=== PATIENT | female | born 1985 | race Caucasian/White ===

== ENCOUNTER → 2021-01-07 15:18 | Outpatient (BNVA) | payer SELFPAY | PROVIDERS: Visit Provider Emergency Medicine | DX: R10.9 Unspecified abdominal pain (principal); R11.2 Nausea with vomiting, unspecified; R10.13 Epigastric pain | CPT/HCPCS: 80053; 83690; 85025 ==

== ENCOUNTER → 2022-06-30 11:24 | Outpatient (BNVA) | payer OTHER, MEDICAID, SELFPAY | PROVIDERS: Visit Provider Emergency Medicine | DX: R55 Syncope and collapse (principal); R53.83 Other fatigue; R00.0 Tachycardia, unspecified; Z72.89 Other problems related to lifestyle | CPT/HCPCS: 71046; 80053; 83036; 84443; 85025 ==

== ENCOUNTER → 2023-09-29 09:46 | Outpatient (BNVA) | payer OTHER, MEDICAID, SELFPAY | PROVIDERS: Visit Provider Family Medicine | DX: B19.20 Unspecified viral hepatitis C without hepatic coma (principal); Z79.899 Other long term (current) drug therapy | CPT/HCPCS: 80053; 82306; 82607; 82728; 82746; 83550; 84443; 85025 ==

== ENCOUNTER → 2024-01-19 14:49 | Outpatient (BNVA) | payer OTHER, SELFPAY | PROVIDERS: PCP Family Medicine; Visit Provider Psychiatry & Neurology Psychiatry | DX: F15.21 Other stimulant dependence, in remission (principal); Z79.899 Other long term (current) drug therapy; F11.20 Opioid dependence, uncomplicated; F17.200 Nicotine dependence, unspecified, uncomplicated; F41.1 Generalized anxiety disorder; F33.2 Major depressive disorder, recurrent severe without psychotic features; F33.1 Major depressive disorder, recurrent, moderate; F11.21 Opioid dependence, in remission | CPT/HCPCS: 80307 ==

== ENCOUNTER 2024-08-14 12:35 | Emergency (ER) | payer MEDICAID, SELFPAY ==
[2024-08-14 12:52] VITALS: BP 126/61; PULSE 91; RESP 18; TEMP 36.7; O2SAT 100; BMI 23.8
--- NOTE | 2024-08-14 13:04 | ECG_ITS ---
[facility] Test Date: 2024-08-14 Pat Name: Maryann Beatty Department: Room: Gender: Female Garment Presser: : 1985 Requested By: Angi Quinn Order Number: [id number] Stephane MD: Blanca Miller M.D. Measurements Intervals [place] Rate: 81 P: 40 AL: 141 QRS: 66 QRSD: 93 T: 46 QT: 366 QTc: 427 Interpretive Statements SINUS RHYTHM Compared to ECG 05/12/2018 21:35:51 Sinus tachycardia no longer present T-wave abnormality no longer present Electronically Signed On 08-14-2024 19:28:47 INTERNAL COMBUSTION ENGINEER by Blanca Miller M.D. [email or web address]
[2024-08-14 14:24] VITALS: BP 122/74; PULSE 71; O2SAT 100
--- NOTE | 2024-08-14 14:37 | W.ED.ANXIETY ---
HPI - Anxiety General: Chief Complaint: Anxiety Stated Complaint: shaking, feels weird Time Seen by Provider: 08/14/24 14:30 Source: patient Mode of arrival: ambulatory Limitations: no limitations History of Present Illness: 39-year-old female states she has a long history anxiety states that her PCP did recently take her off Klonopin and she been having worsening Roberto states she had anxiety attack earlier today feels much improved currently states she felt like she could not breathe was having palpitations she states she feels much calmer she denies any SI or HI. Associated symptoms: Deny chest pain, chills, fever(s), headache(s), nausea or vomiting Related Data Home Medications Medication Instructions Recorded Confirmed ibuprofen 200 mg tablet 200 mg PO Q6H PRN Pain 08/30/22 08/14/24 Previous Rx's Medication Instructions Recorded bupropion HCl 150 mg 24 hr tablet, 150 mg PO QAM #30 tabs 05/06/24 extended release (Wellbutrin XL) mirtazapine 15 mg tablet 15 mg PO .HS #30 tabs 05/06/24 varenicline 1 mg tablet 1 mg PO BID #56 tabs 05/06/24 hydroxyzine pamoate 25 mg capsule 25 mg PO BID PRN anxiety #20 caps 08/14/24 (Vistaril) Allergies Allergy/AdvReac Type Severity Reaction Status Date / Time promethazine [From Phenergan] Allergy Unknown Unknown Verified 05/22/24 14:02 Review of Systems Const: Denies: fever(s), chills, body aches or change in appetite ENMT: Denies: throat pain or dental pain Card: Denies: chest pain Resp: Denies: dyspnea GI: Denies: abdominal pain, nausea, vomiting or diarrhea Musc: Denies: neck pain or back pain Skin/Breast: Denies: rash Neuro: Denies: headache(s) Psych: Reports: anxiety PFSH ED PFSH: Medical History Psychiatric care Hepatitis C Moderate major depression Anxiety Methamphetamine use disorder, moderate, in sustained remission, dependence Family history of diabetes mellitus Surgical History S/P section H/O: Family History Father Myocardial infarction Stroke Hypertension Diabetes Social History Smoking and tobacco/nicotine status: current every day tobacco/nicotine user (vape) Alcohol intake: former Substance/Drug Use: former Adopted: No Caregiver/support person: No Lives independently: Yes service: No Current occupational exposures/hazards: No Current gender identity: Female Female Reproductive History: Spontaneous abortions: No Physical Exam Const: COMMON NORMALS: no acute distress, patient oriented x3 and healthy appearing HENMT: COMMON NORMALS: normocephalic and atraumatic HEAD & SCALP: normocephalic and atraumatic Neck/C-Spine: COMMON NORMALS: full ROM and supple Chest: COMMONS NORMALS: normal inspection of the chest Resp: COMMON NORMALS: normal respiratory effort, No retractions, No use of accessory muscles and clear to auscultation bilaterally AUSCULTATION: clear to auscultation bilaterally Cardio: COMMON NORMALS: regular rate, regular rhythm and No murmurs present (Cardio) RATE: regular rate RHYTHM: regular rhythm Extremity: COMMON NORMALS: normal to inspection and full ROM Neuro: COMMON NORMALS: patient oriented x3, moves all extremities and no focal motor deficits Psych: COMMON NORMALS: mental status grossly normal, Normal thought process present and cooperative THOUGHT PROCESS: Normal thought process present Skin: COMMON NORMALS: no rashes or lesions noted and no wounds GENERAL SKIN EXAM: no rashes or lesions noted Course Vital Signs: Vital signs: Vital Signs Temperature 98.1 F 08/14/24 12:52 Pulse Rate 73 08/14/24 15:03 Respiratory Rate 18 08/14/24 12:52 Blood Pressure 104/79 08/14/24 15:03 Pulse Oximetry 98 08/14/24 15:03 Oxygen Delivery Me thod Room Air 08/14/24 14:24 MDM - Anxiety Medical Decision Making Patient presents here with anxiety she is well-appearing here EKG is normal I informed her I cannot refill her Klonopin did give her Vistaril she is to follow-up with her PCP return to ER if worsening she understands agrees to plan Medical Records I reviewed the patient's medical records. No radiology studies performed this visit EKG Data EKG 1: I personally reviewed and interpreted this EKG as follows: EKG interpretation date: 08/14/24 EKG interpretation time: 14:38 Interpretation: nsr hr [address] elevation qrs 93 qtc 404 Discharge Plan Discharge Patient Disposition: Home Clinical Impression: Anxiety Condition: Stable Prescriptions: New hydroxyzine pamoate [Vistaril] 25 mg capsule 25 mg PO BID PRN (Reason: anxiety) Qty: 20 0RF No Action ibuprofen 200 mg tablet 200 mg PO Q6H PRN (Reason: Pain) bupropion HCl [Wellbutrin XL] 150 mg tablet extended release 24 hr 150 mg PO QAM Qty: 30 2RF mirtazapine 15 mg tablet 15 mg PO .HS Qty: 30 2RF varenicline 1 mg tablet 1 mg PO BID Qty: 56 2RF Discharge Orders: Discharge ED (Routine); Ordered 08/14/24 Ordered By: Angi Quinn Referrals: Darrel Crocker MD [Primary Care Provider] - 4-7 days Discharge Diet: Advance as tolerated Discharge Activity: Resume usual activity Patient Instructions: Anxiety (ED) Coding Level of Care Code ED Executive Relations Specialist for Jesus Hendricks
[2024-08-14] MEDS: CLONazepam 0.5 mg Tablet PO (14:55)
[2024-08-14 15:03] VITALS: BP 104/79; PULSE 73; O2SAT 98
== END 2024-08-14 15:02 | disposition home or self-care (01) ==
PROVIDERS: Emergency Provider Emergency Medicine; PCP Family Medicine
DX: F41.9 Anxiety disorder, unspecified (principal); F17.290 Nicotine dependence, other tobacco product, uncomplicated
CPT/HCPCS: 93005; 99283

== ENCOUNTER 2024-09-15 17:36 | Emergency (ER) | payer MEDICAID, SELFPAY ==
[2024-09-15 17:47] VITALS: BP 113/79; PULSE 127; RESP 18; TEMP 36.7; O2SAT 99; BMI 21.0
--- NOTE | 2024-09-15 18:26 | W.ED.GENADLT ---
HPI - General Adult General: Chief complaint: General Medical Stated complaint: withdrawls Time Seen by Provider: 09/15/24 18:07 History of Present Illness: Patient is a 39-year-old female that presents to the emergency department with complaints of withdrawals. Patient reports she recently made a change to her Suboxone dose with her provider. She went from 8 mg to 2 mg but was unable to successfully taper off. She ended up doubling up on her 2 mg strips of Suboxone and has ultimately run out. She cannot see her provider until Monday. Associated symptoms: Deny chest pain, dyspnea, headache(s), nausea, rash or vomiting Related Data Home Medications Medication Instructions Recorded Confirmed ibuprofen 200 mg tablet 200 mg PO Q6H PRN Pain 08/30/22 08/14/24 Previous Rx's Medication Instructions Recorded bupropion HCl 150 mg 24 hr tablet, 150 mg PO QAM #30 tabs 05/06/24 extended release (Wellbutrin XL) mirtazapine 15 mg tablet 15 mg PO .HS #30 tabs 05/06/24 varenicline 1 mg tablet 1 mg PO BID #56 tabs 05/06/24 hydroxyzine pamoate 25 mg capsule 25 mg PO BID PRN anxiety #20 caps 08/14/24 (Vistaril) clonidine HCl 0.1 mg tablet 0.1 mg PO TID #3 tabs 09/15/24 hydralazine 25 mg tablet 25 mg PO TID #3 tabs 09/15/24 lorazepam 1 mg tablet (Ativan) 1 mg PO Q8H PRN withdrawal 09/15/24 symptoms #3 tabs ondansetron 4 mg disintegrating 4 mg PO Q8H 24 hours #3 tabs 09/15/24 tablet Allergies Allergy/AdvReac Type Severity Reaction Status Date / Time promethazine [From Phenergan] Allergy Unknown Unknown Verified 09/15/24 17:52 Review of Systems Const: Denies: fever(s), chills, body aches or change in appetite ENMT: Denies: throat pain or dental pain Card: Denies: chest pain Resp: Denies: dyspnea GI: Denies: abdominal pain, nausea, vomiting or diarrhea Musc: Denies: neck pain or back pain Skin/Breast: Denies: rash Neuro: Denies: headache(s) Psych: Reports: anxiety (Withdrawal from Suboxone) [facility] ED PFSH: Medical History Psychiatric care Hepatitis C Moderate major depression Anxiety Methamphetamine use disorder, moderate, in sustained remission, dependence Family history of diabetes mellitus Surgical History S/P section H/O: Family History Father Myocardial infarction Stroke Hypertension Diabetes Social History Smoking and tobacco/nicotine status: current every day tobacco/nicotine user Alcohol intake: former Substance/Drug Use: former Adopted: No Caregiver/support person: No Lives independently: Yes service: No Current occupational exposures/hazards: No Current gender identity: Female Female Reproductive History: Spontaneous abortions: No Physical Exam Const: COMMON NORMALS: no acute distress, patient oriented x3 and healthy appearing HENMT: COMMON NORMALS: normocephalic and atraumatic HEAD & SCALP: normocephalic and atraumatic Neck/C-Spine: COMMON NORMALS: full ROM and supple Chest: COMMONS NORMALS: normal inspection of the chest Resp: COMMON NORMALS: normal respiratory effort, No retractions, No use of accessory muscles and clear to auscultation bilaterally AUSCULTATION: clear to auscultation bilaterally Cardio: COMMON NORMALS: regular rhythm and No murmurs present (Cardio) RATE: tachycardic RHYTHM: regular rhythm Extremity: COMMON NORMALS: normal to inspection and full ROM Neuro: COMMON NORMALS: patient oriented x3, moves all extremities and no focal motor deficits Psych: COMMON NORMALS: mental status grossly normal, Normal thought process present and cooperative THOUGHT PROCESS: Normal thought process present Skin: COMMON NORMALS: no rashes or lesions noted and no wounds GENERAL SKIN EXAM: no rashes or lesions noted Course Vital Signs: Vital signs: Vital Signs Temperature 98.1 F 09/15/24 17:47 Pulse Rate 127 H 09/15/24 17:47 Respiratory Rate 18 09/15/24 17:47 Blood Pressure 113/79 09/15/24 17:47 Pulse Oximetry 99 09/15/24 17:47 Oxygen Delivery Me thod Room Air 09/15/24 17:47 MDM - General Adult Medical Decision Making Patient is here in the emergency department for medication refill and help with her withdrawal symptoms. Patient is usually on Suboxone but ran out. She cannot see her provider until Monday. I reviewed the case with Dr. Lemon We are going to provide the patient with clonidine, Ativan, hydralazine and Zofran. Patient is being provided her initial doses for tonight but then she will need to pickle solution maker her prescriptions in the morning. She needs to call her doctor tomorrow to see if she can get a refill of her Suboxone. At this time no further diagnostics are warranted No radiology studies performed this visit Discharge Plan Discharge Patient Disposition: Home Clinical Impression: Withdrawal complaint Condition: Stable Prescriptions: New lorazepam [Ativan] 1 mg tablet 1 mg PO Q8H PRN (Reason: withdrawal symptoms) Qty: 3 0RF clonidine HCl 0.1 mg tablet 0.1 mg PO TID Qty: 3 0RF hydralazine 25 mg tablet 25 mg PO TID Qty: 3 0RF ondansetron 4 mg tablet,disintegrating 4 mg PO Q8H 1 Days Qty: 3 0RF No Action ibuprofen 200 mg tablet 200 mg PO Q6H PRN (Reason: Pain) bupropion HCl [Wellbutrin XL] 150 mg tablet extended release 24 hr 150 mg PO QAM Qty: 30 2RF mirtazapine 15 mg tablet 15 mg PO .HS Qty: 30 2RF varenicline 1 mg tablet 1 mg PO BID Qty: 56 2RF hydroxyzine pamoate [Vistaril] 25 mg capsule 25 mg PO BID PRN (Reason: anxiety) Qty: 20 0RF Discharge Orders: Discharge ED (Routine); Ordered 09/15/24 [facility] Referrals: Darrel Crocker MD [Primary Care Provider] - Discharge Diet: Advance as tolerated Discharge Activity: Resume usual activity Patient Instructions: Opioid Safety, Pain Management Activity Restrictions/Additional Instructions: You have been provided hydralazine, Ativan, clonidine and Zofran to help with your withdrawal symptoms. I have given you enough for tonight but you need to pickle solution maker your prescription in the morning. You need to call your pain management provider/Suboxone provider to see if he can get additional medications. Call in the morning. Work note provided Stand Alone Forms: Work/School Release Coding Level of Care Code ED Assessment Specialist for Jesus Hendricks
[2024-09-15] MEDS: LORazepam 1 mg Tablet PO (18:44)
[2024-09-15] MEDS: cloNIDine 0.1 mg Tablet PO (18:45)
[2024-09-15] MEDS: ondansetron 4 MG Tablet PO (18:45)
[2024-09-15] MEDS: hyDRALAzine 25 mg Tablet PO (18:46)
[2024-09-15 18:47] VITALS: BP 109/74; PULSE 75; RESP 18; O2SAT 98
== END 2024-09-15 18:51 | disposition home or self-care (01) ==
PROVIDERS: Emergency Provider Nurse Practitioner; PCP Family Medicine
DX: F15.23 Other stimulant dependence with withdrawal (principal); Z72.0 Tobacco use
CPT/HCPCS: 99283; Q0162

== ENCOUNTER → 2024-09-17 14:46 | Outpatient (BNVA) | payer MEDICAID, SELFPAY | PROVIDERS: PCP Family Medicine; Visit Provider Nurse Practitioner Psychiatric/Mental Health | DX: Z79.899 Other long term (current) drug therapy (principal) | CPT/HCPCS: 80053; 80061; 80307; 83036 ==

== ENCOUNTER → 2024-11-07 13:52 | Outpatient (BNVA) | payer OTHER, SELFPAY ==
[2024-09-18 11:43] VITALS: BP 128/77; BMI 22.0
== END ==
PROVIDERS: PCP Family Medicine; Visit Provider Nurse Practitioner Psychiatric/Mental Health
DX: Z79.899 Other long term (current) drug therapy (principal)
CPT/HCPCS: 80307

== ENCOUNTER → 2024-12-17 10:42 | Outpatient (BNVA) | payer OTHER, SELFPAY ==
[2024-09-18 11:43] VITALS: BP 128/77; BMI 22.0
== END ==
PROVIDERS: PCP Family Medicine; Visit Provider Nurse Practitioner Psychiatric/Mental Health
DX: Z79.899 Other long term (current) drug therapy (principal)
CPT/HCPCS: 80307

== ENCOUNTER 2025-04-21 07:55 | Outpatient (CLI) | payer MEDICAID, SELFPAY ==
[2024-09-18 11:43] VITALS: BP 128/77; BMI 22.0
--- NOTE | 2025-04-21 08:01 | US_ITS ---
WS: [id number] Complete ABDOMINAL ULTRASOUND HISTORY: ventral hernia COMPARISON: None available. Liver: 14.4 cm in length. Normal size liver. There are several scattered hepatic cysts. No solid mass. The largest cyst in the central liver measures 1.7 x 1.8 x 1.8 cm. Portal Vein: Normal hepatopetal flow with monophasic waveform. Gallbladder: Normally distended gallbladder with no stones or wall thickening. CBD: 0.9 cm Pancreas: Normal size and echogenicity. Right kidney: 10.5 cm x 3.6 x 3.6 cm. Cortex:0.7 cm. Normal size and echogenicity. No hydronephrosis or mass. Left kidney: 11.9 cm x 3.8 cm x 3.5 cm. Cortex: 1.0 cm. Normal size and echogenicity. No hydronephrosis or mass. Spleen: 10.6 cm. Normal size and echogenicity. Aorta and IVC: Unremarkable abdominal aorta and IVC. No supraumbilical region there is a hernia containing fat only. No peristalsing loop of bowel is identified. Omental fat is noted. No abnormality below the umbilicus. US/US abdomen complete* [id number] Impression: 1. Small supraumbilical omental fat-containing hernia. 2. Several hepatic cysts. No solid mass. 3. Otherwise normal ultrasound of the abdomen.
== END 2025-04-21 07:56 | disposition home or self-care (01) ==
LOC: RAD 07:57
PROVIDERS: PCP Family Medicine; Visit Provider Family Medicine
DX: K42.9 Umbilical hernia without obstruction or gangrene (principal)
CPT/HCPCS: 76700